=== PATIENT | female | born 1950 ===

== ENCOUNTER 2019-01-28 21:01 | Emergency (ER) | payer SELFPAY ==
--- NOTE | 2019-01-28 21:46 | ED PDOC ---
HPI: Trauma/Fall - HPI Time Seen by Provider: 01/28/19 21:30 Chief Complaint (Nursing): Trauma Chief Complaint (Provider): Trauma History Per: Patient History/Exam Limitations: no limitations Injury Occurred (Timing): Just Before Arrival Location Of Injury: Left: Hand (5th digit), Anterior: Head Additional Complaint(s): 68 year old female with no significant medical history presents to the ED s/p slip and fall [employer]. Patient was running home in the rain when she slipped and fell on her right side. She tried to shield her face with her hand but her head still hit the pavement. Patient didn't hit her head very hard and denies LOC, transient dizziness, loss of vision, or lower extremity pain. She states she had an umbrella in her left hand which she thinks caught her finger causing an injury to her left 5th digit. Patient does not use blood thinners. Patient states she will be travelling back to [place] and 2 days. PMD: none provided Past Medical History Reviewed: Historical Data, Nursing Documentation, Vital Signs Vital Signs: Last Vital Signs Temp 98.2 F 01/28/19 21:25 Pulse 77 01/28/19 21:25 Resp 16 01/28/19 21:25 BP 136/84 01/28/19 21:25 Pulse Ox 97 01/28/19 21:25 Primary Care Provider: FAMILY PROVIDER,NO - Family History Family History: States: Unknown Family Hx - Home Medications Home Medications: Ambulatory Orders Medication Instructions Recorded Ibuprofen [Motrin] 600 mg PO Q6H PRN #20 tab 01/28/19 - Allergies Allergies/Adverse Reactions: Allergies Allergy/AdvReac Type Severity Reaction Status Date / Time No Known Allergies Allergy Verified 01/28/19 21:28 Review of Systems ROS Statement: Except As Marked, All Systems Reviewed And Found Negative Musculoskeletal: Positive for: Other (5th left finger pain) Neurological: Positive for: Headache. Negative for: Dizziness Physical Exam - Reviewed Nursing Documentation Reviewed: Yes Vital Signs Reviewed: Yes - Physical Exam Extremity: Positive for: Capillary Refill (less than 2 seconds), Deformity (left 5th digit between MCP and PIP), Other (good use of extension and flexion tendon, no signs of injury to bilateral wrists and forearms). Negative for: Swelling Neurological/Psych: Positive for: Awake, Alert, Oriented (x3). Negative for: Motor/Sensory Deficits Comments: HEAD: small hematoma to right forehead with abrasions - ECG O2 Sat by Pulse Oximetry: 97 (RA) Pulse Ox Interpretation: Normal Medical Decision Making Medical Decision Making: Time: 2134 Plan: --XR left hand --Clean abrasion on forehead and apply bacitracin Xray viewed by me: displaced 5th digit the PIP joint. Call to Dr. Thornton for consult. 21:20 Dr. Nguyen aware of consult, pending recommendations. 22:50 Dr. nguyen recommended digital block and reduction. --patient offered digital block, patient refused. Finger reduction done by me successfully, 5th digit placed in metal splint in flexed position. Advised sacha ent not to remove splint for 2-3 days. --patient for post reduction xray, then stable to discharge home. Patient states understanding and agrees with plan. encouraged RICE. --post reduction xray demonstrates finger is re-aligned. Scribe Attestation: Documented by Mimi Bernabe acting as a scribe for Adilene RESENDEZN. Provider Scribe Attestation: All medical record entries made by the Scribe were at my direction and personally dictated by me. I have reviewed the chart and agree that the record accurately reflects my personal performance of the history, physical exam, medical decision making, and the department course for this patient. I have also personally directed, reviewed, and agree with the discharge instructions and disposition. Disposition - Clinical Impression Clinical Impression: Finger dislocation - Patient ED Disposition Is Patient to be Admitted: No Counseled Patient/Family Regarding: Diagnosis, Need For Followup, Rx Given - Disposition Disposition: Routine/Home Disposition Time: 23:00 Condition: GOOD Prescriptions: Ibuprofen [Motrin] 600 mg PO Q6H PRN #20 tab PRN Reason: Pain, Moderate (4-7) Instructions: Finger Dislocation (DC) Print Language: YORUBA - POA Present On Arrival: None
[2019-01-28] MEDS ORDERED: Lidocaine 1% Inj (20ml) ONE (22:34)
[2019-01-28] MEDS ORDERED: Povidone Iodine Topical 10% Sol ONE (22:34)
[2019-01-28] MEDS ORDERED: Bacitracin 500 Units/gm Oint Foilpak UD ONE (22:34)
[2019-01-28 23:41] VITALS: BP 128/76; PULSE 76; RESP 18; TEMP 98
[2019-01-29 00:35] VITALS: O2SAT 97
--- NOTE | 2019-01-29 08:49 | RAD ---
Date of service: 01/28/2019 PROCEDURE: Right small finger radiographs. HISTORY: post reduction COMPARISON: Preliminary radiographs left 5th digit 02/07/2019. TECHNIQUE: AP radiograph of the right hand, as well as spot oblique and lateral images of small finger were obtained. 3 views obtained. FINDINGS: RIGHT SMALL FINGER: No interval fracture is appreciated or destructive bone lesion with prior PIP dislocation now reduced. Remainder of the right hand (as seen on the AP view) grossly unremarkable. Diffuse osteopenia again suggests advanced osteoporosis. JOINTS: As above. Further, degenerative cortical sclerosis appreciate throughout the interphalangeal joints diffusely as well as the remaining joints of the hand and wrist diffusely. Old avulsion fracture again noted at the ulnar styloid with prior ORIF distal radius reiterated as well. SOFT TISSUES: Soft tissue edema at the proximal to mid 5th digit levels. OTHER FINDINGS: None. IMPRESSION: Reduction of PIP joint dislocation left 5th digit without interval fracture identified. Diffuse osteopenia suggests osteoporosis throughout the left hand diffusely. Limited soft tissue edema is seen at the proximal and mid left 5th digit levels.
--- NOTE | 2019-01-29 08:51 | RAD ---
PROCEDURE: Left Hand Radiographs. HISTORY: fall, 5th digit deformity COMPARISON: None. TECHNIQUE: 3 views obtained. FINDINGS: BONES: No acute fracture or destructive bony lesion identified. Diffuse osteopenia suggests osteoporosis. JOINTS: There is a posterior dislocation of the middle phalanx relative to the proximal phalanx left small digit remaining joints remarkable only for degenerative joint osteoarthritis, manifest by cortical sclerosis throughout the joints of the left hand and wrist. SOFT TISSUES: Normal. OTHER FINDINGS: Prior ORIF distal left radius with ulnar styloid fracture chronically noted. IMPRESSION: PIP dislocation identified with middle phalanx posterior and proximal to distal phalanx left small digit. No fracture. Diffuse osteopenia suggests osteoporosis.
== END 2019-01-28 23:39 | disposition home or self-care (01) ==
LOC: H.ER 21:01
DX: S63.286A Dislocation of proximal interphalangeal joint of right little finger, initial encounter (principal); W01.0XXA Fall on same level from slipping, tripping and stumbling without subsequent striking against object, initial encounter; Y92.89 Other specified places as the place of occurrence of the external cause